=== PATIENT | male | born 1945 | race African-American/Black ===

== ENCOUNTER 2024-01-17 12:04 | Emergency (ER) | payer OTHER ==
[2024-01-17] MEDS ORDERED: TETRACAINE HCL 0.5% 4ML OPTH ONE (13:28)
[2024-01-17] MEDS ORDERED: FLUORESCEIN SODIUM 1 MG/WRAP ONE (13:28)
[2024-01-17] MEDS ORDERED: TOBRAMYCIN SULF 0.3% OPTH OINT ONE (14:03)
--- NOTE | 2024-01-17 14:15 | ER ---
Nurse's Notes [facility] Name: Manas Brambila Age: 78 yrs Sex: Male : 1945 Arrival Date: 01/17/2024 Time: 12:04 Bed Treatment Private MD: Diagnosis: Injury of conjunctiva and corneal abrasion without foreign body, right eye Presentation: 01/16 12:31 Chief complaint: Patient states: Red eye redness, uncomfortable, feels like there is nj1 something in it when blinking. Was moving the grass 5-6 days ago, there was concrete dust on the road and came up in his eyes. Slightly better but still bothersome. [facility] and was advised to come to ED for further evaluation and treatment. Coronavirus screen: Vaccine status: Patient reports receiving the 2nd dose of the covid vaccine. Ebola Screen: Patient denies travel to an Ebola-affected area in the 21 days before illness onset. Initial Sepsis Screen: Does the patient meet any 2 criteria? No. Patient's initial sepsis screen is negative. Does the patient have a suspected source of infection? No. Patient's initial sepsis screen is negative. Risk Assessment: Do you want to hurt yourself or someone else? Patient reports no desire to harm self or others. Onset of symptoms was December 2023. 12:31 Method Of Arrival: Ambulatory [facility] 12:31 Acuity: ARNDALL 4 nj1 Triage Assessment: 12:36 General: Appears in no apparent distress. comfortable, Behavior is calm, cooperative, nj1 appropriate for age. Pain: Complains of pain in right eye Pain currently is 2 out of 10 on a pain scale. EENT: Sclera/Cornea are reddened in outer aspect of conjuctiva of right eye and inner aspect of conjuctiva of right eye. Historical: - Allergies: 12:34 No Known Allergies; nj1 - PMHx: 12:34 BPH; Hypertensive disorder; Pre-glaucoma; nj1 - Immunization history:: Client reports receiving the 2nd dose of the Covid vaccine. - Infectious Disease History:: Denies. - Social history:: Smoking status: Patient denies any tobacco usage or history of. - Family history:: not pertinent. Screenin:38 [facility] ED Fall Risk Assessment (Adult) History of falling in the last 3 months, cm10 including since admission No falls in past 3 months (0 pts) Confusion or Disorientation No (0 pts) Intoxicated or Sedated No (0 pts) Impaired Gait No (0 pts) Mobility Assist Device Used No (0 pt) Altered Elimination No (0 pt) Score/Fall Risk Level 0 - 2 = Low Risk Oriented to surroundings, Maintained a safe environment, Hourly rounding (assess needs \T\ fall precautionary measures) done. Abuse screen: Denies threats or abuse. Denies injuries from another. Nutritional screening: No deficits noted. Tuberculosis screening: No symptoms or risk factors identified. Assessment: 14:39 Reassessment: Patient appears in no apparent distress at this time. Patient and/or cm10 family updated on plan of care and expected duration. Pain level reassessed. Patient is alert, oriented x 3, equal unlabored respirations, skin warm/dry/pink. Patient states feeling better. Patient states symptoms have improved. Vital Signs: 12:31 BP 146 / 87; Pulse 84; Resp 17; Temp 98.4; Pulse Ox 97% on R/A; Weight 106.59 kg; [facility] Height 5 ft. 10 in. ; 12:31 Body Mass Index 33.72 (106.59 kg, 177.8 cm) [facility] ED Course: 12:07 Patient arrived in ED. rg4 12:27 Hema Ovalle MD is Attending Physician. [facility] 12:34 Triage completed. mn1 12:36 Arm band placed on right wrist. [facility] 13:23 Nela To, LESLIE is Primary Nurse. 10 14:14 Arsh Olvera MD is Referral Physician. [facility] 14:38 Patient has correct armband on for positive identification. Provided Education on: cm10 Follow-up instructions. 14:39 No provider procedures requiring assistance completed. Patient did not have IV access cm10 during this emergency room visit. Administered Medications: 14:00 Drug: Tetracaine Ophthalmic Drops 0.5 % 1 drops Ophthalmic once {Note: Given to Dr rolly Ovalle for administration.} Route: Ophthalmic; Site: right eye; 14:08 Drug: Tobrex Ophthalmic Ointment 0.3 % 1 application Ophthalmic in right eye once cm10 Route: Ophthalmic; Site: right eye; Medication: 14:38 VIS not applicable for this client. cm10 Outcome: 14:15 Discharge ordered by . [facility] 14:39 Discharged to home ambulatory, cm10 14:39 Condition: good 14:39 Discharge instructions given to patient, Instructed on discharge instructions, follow up and referral plans. Demonstrated understanding of instructions, follow-up care, medications, Prescriptions given X 2, 14:47 Patient left the ED. cm10 Signatures: Hema Ovalle MD MD cha Garcia, Rubi rg4 Carol Butler RN RN nj1 Nela To RN RN cm10
--- NOTE | 2024-01-17 14:15 | EDPHYS ---
Physician Documentation [facility] Name: Manas Brambila Age: 78 yrs Sex: Male : 1945 Arrival Date: 01/17/2024 Time: 12:04 Bed Treatment Private MD: ED Physician Hema Ovalle HPI: 01/16 14:09 This 78 yrs old Black Male presents to ER via Ambulatory with complaints of Eye Problem.torey 14:09 The patient is experiencing foreign body sensation, pain, redness, The patient torey sustained an abrasion, to the left eye. Onset: The symptoms/episode began/occurred 3 day(s) ago. Duration: the symptoms are continuous. Aggravated by closing eye, light, opening eye. Associated signs and symptoms: Pertinent positives: None. Patient wears glasses. Severity of symptoms: At their worst the symptoms were mild in the emergency department the symptoms are unchanged. The patient has not experienced similar symptoms in the past. Historical: - Allergies: 12:34 No Known Allergies; nj1 - PMHx: 12:34 BPH; Hypertensive disorder; Pre-glaucoma; nj1 - Immunization history:: Client reports receiving the 2nd dose of the Covid vaccine. - Infectious Disease History:: Denies. - Social history:: Smoking status: Patient denies any tobacco usage or history of. - Family history:: not pertinent. ROS: 14:09 Constitutional: Negative for fever, chills, and weight loss, ENT: Negative for injury, torey pain, and discharge, Neck: Negative for injury, pain, and swelling, Cardiovascular: Negative for chest pain, palpitations, and edema, Respiratory: Negative for shortness of breath, cough, wheezing, and pleuritic chest pain, Abdomen/GI: Negative for abdominal pain, nausea, vomiting, diarrhea, and constipation, Back: Negative for injury and pain, : Negative for injury, bleeding, discharge, and swelling, MS/Extremity: Negative for injury and deformity, Skin: Negative for injury, rash, and discoloration, Neuro: Negative for headache, weakness, numbness, tingling, and seizure, Psych: Negative for depression, anxiety, suicide ideation, homicidal ideation, and hallucinations, Allergy/Immunology: Negative for hives, rash, and allergies, Endocrine: Negative for neck swelling, polydipsia, polyuria, polyphagia, and marked weight changes, Hematologic/Lymphatic: Negative for swollen nodes, abnormal bleeding, and unusual bruising, 14:09 Eyes: Positive for foreign body sensation, matting, pain, redness, of the iris of right eye, Exam: 14:09 Constitutional: This is a well developed, well nourished patient who is awake, alert, torey and in no acute distress. Head/Face: Normocephalic, atraumatic. ENT: Nares patent. No nasal discharge, no septal abnormalities noted. Tympanic membranes are normal and external auditory canals are clear. Oropharynx with no redness, swelling, or masses, exudates, or evidence of obstruction, uvula midline. Mucous membranes moist. Neck: Trachea midline, no thyromegaly or masses palpated, and no cervical lymphadenopathy. Supple, full range of motion without nuchal rigidity, or vertebral point tenderness. No Meningismus. Chest/axilla: Normal chest wall appearance and motion. Nontender with no deformity. No lesions are appreciated. Cardiovascular: Regular rate and rhythm with a normal S1 and S2. No gallops, murmurs, or rubs. Normal PMI, no JVD. No pulse deficits. Respiratory: Lungs have equal breath sounds bilaterally, clear to auscultation and percussion. No rales, rhonchi or wheezes noted. No increased work of breathing, no retractions or nasal flaring. Abdomen/GI: Soft, non-tender, with normal bowel sounds. No distension or tympany. No guarding or rebound. No evidence of tenderness throughout. Back: No spinal tenderness. No costovertebral tenderness. Full range of motion. Male : Normal genitalia with no discharge or lesions. Skin: Warm, dry with normal turgor. Normal color with no rashes, no lesions, and no evidence of cellulitis. MS/ Extremity: Pulses equal, no cyanosis. Neurovascular intact. Full, normal range of motion. Neuro: Awake and alert, GCS 15, oriented to person, place, time, and situation. Cranial nerves II-XII grossly intact. Motor strength 5/5 in all extremities. Sensory grossly intact. Cerebellar exam normal. Normal gait. Psych: Awake, alert, with orientation to person, place and time. Behavior, mood, and affect are within normal limits. 14:09 Eyes: Periorbital structures: appear normal, no acute changes, no abrasion, no cellulitis, no contusion, no ecchymosis, no erythema, no laceration, no swelling, cellulitis, is not appreciated, Pupils: no acute changes, normal size, Extraocular movements: no acute changes, Conjunctiva: injected, in the right eye, Corneas: abrasion, that is small, approximately 2 mm(s), at 6 o'clock, Sclera: injected, Anterior chamber: normal, Lids and lashes: appear normal, no acute changes, no evidence of trauma, Nystagmus: is not appreciated, Vital Signs: 12:31 BP 146 / 87; Pulse 84; Resp 17; Temp 98.4; Pulse Ox 97% on R/A; Weight 106.59 kg; nj1 Height 5 ft. 10 in. ; 12:31 Body Mass Index 33.72 (106.59 kg, 177.8 cm) pa1 MDM: 12:27 Patient medically screened. [facility] 14:13 Differential diagnosis: Corneal abrasion of Foreign body in Infectious conjunctivitis torey in. Data reviewed: vital signs, nurses notes. Consideration of Admission/Observation Escalation of care including admission/observation considered. I considered the following discharge prescriptions or medication management in the emergency department Medications were administered in the Emergency Department. See MAR. Test considered but Not performed: Labs: no labs. Care significantly affected by the following chronic conditions: Hypertension, bph , preglaucoma. Counseling: I had a detailed discussion with the patient and/or guardian regarding the historical points, exam findings, and any diagnostic results supporting the discharge/admit diagnosis, the need for outpatient follow up, for definitive care, an opthalmologist, a family practitioner. 01/16 13:19 Order name: Eye Tray; Complete Time: 13:25 torey 01/16 13:19 Order name: Fluoresene Opth strip; Complete Time: 13:36 torey 01/16 14:09 Order name: Misc. Order: right eye patch; Complete Time: 14:47 [facility] Administered Medications: 14:00 Drug: Tetracaine Ophthalmic Drops 0.5 % 1 drops Ophthalmic once {Note: Given to Dr rolly Ovalle for administration.} Route: Ophthalmic; Site: right eye; 14:08 Drug: Tobrex Ophthalmic Ointment 0.3 % 1 application Ophthalmic in right eye once cm10 Route: Ophthalmic; Site: right eye; Disposition Summary: 01/17/24 14:15 Discharge Ordered Notes: Location: Home [facility] Problem: new torey Symptoms: have improved torey Condition: Stable torey Diagnosis - Injury of conjunctiva and corneal abrasion without foreign body, right eye torey Followup: torey - With: Private Physician - When: Tomorrow - Reason: Recheck today's complaints, Continuance of care, Re-evaluation by your physician Followup: torey - With: Arsh Olvera MD - When: Today - Reason: Recheck today's complaints, Re-evaluation by your physician Discharge Instructions: - Discharge Summary Sheet torey - Corneal Abrasion torey - Corneal Abrasion, [id number] [facility] Forms: - Medication Reconciliation Form torey - Antibiotic Education torey - Prescription Opioid Use torey - Patient Portal Instructions [facility] - Leadership Thank You Letter [facility] Prescriptions: - acetaminophen-codeine 300-15 mg Oral tablet - take 1 tablet ORAL route every 4 hours as needed for pain; 20 tablet; Refills: torey 0, Product Selection Permitted - Vigamox 0.5 % Ophthalmic Drops - instill 1 drop OPHTHALMIC route every 8 hours for 7 days; 5 milliliter; [facility] [place] Refills: 0, Product Selection Permitted Signatures: Hema Ovalle MD MD cha Jaco, Norma, RN RN nj1 Nela To RN RN cm10
[2024-01-17 15:12] VITALS: BP 146/87; TEMP 98.4; O2SAT 97
== END 2024-01-17 14:47 | disposition home or self-care (01) ==
LOC: ER 12:04
DX: S05.01XA Injury of conjunctiva and corneal abrasion without foreign body, right eye, initial encounter (principal); H40.009 Preglaucoma, unspecified, unspecified eye; I10 Essential (primary) hypertension; N40.0 Benign prostatic hyperplasia without lower urinary tract symptoms
CPT/HCPCS: 99283